=== PATIENT | male | born 1965 | race Caucasian/White ===

== ENCOUNTER 2016-11-15 21:44 | Emergency (ER) | payer BC ==
[2016-11-15 21:48] VITALS: BP 149/109; PULSE 90; RESP 14; O2SAT 97
[2016-11-15] MEDS ORDERED: AUGM875T3 PO ×3 (22:50→23:05)
[2016-11-15] MEDS ORDERED: ATOR10TA15 PO (22:50)
[2016-11-15] MEDS ORDERED: ALBUAER3 INH (22:50)
[2016-11-15] MEDS ORDERED: VENTAER INH (22:50)
[2016-11-15] MEDS ORDERED: POLY10O LEFT EYE (23:04)
--- NOTE | 2016-11-15 23:05 | PD ---
HPI Chief Complaint: Foreign Body Time Seen by Provider: 22:53 Travel History International Travel<30 days: No Contact w/Intl Traveler<30days: No Traveled to known affect area: No History of Present Illness HPI 51-year-old male complains of a fishhook on the left eyebrow and irritation to left eye. Patient was fishing and a fishhook stuck on the left eyebrow and another fishhook scratches his left Eyeball. Patient states that he is up-to- date with TD booster. Patient denies any problems seeing out of the left eye. PFSH Social History Tobacco Use: No Allergies-Medications (Allergen,Severity, Reaction): Coded Allergies: No Known Allergies (Unverified , 11/15/16) Reported Meds & Prescriptions Reported Meds & Active Scripts Active Augmentin (Amoxicillin-Clavulanate) 875-125 Mg Tab 1 Tab PO DAILY Polytrim Opth Drops (Polymyxin/Trimethoprim Sulfate) 10,000-0.1 Unit/Ml-% Soln 1 Drop LEFT EYE TID Reported Proair Hfa 8.5 GM Inh (Albuterol Sulfate) 90 Mcg/Act Aer 2 Puff INH Q4-6H PRN 108 mcg/actuation Atorvastatin (Atorvastatin Calcium) 10 Mg Tab 10 Mg PO HS Augmentin (Amoxicillin-Clavulanate) 875-125 Mg Tab 1 Tab PO BID Review of Systems General / Constitutional: No: Fever Eyes: No: Visual changes HENT: No: Headaches Cardiovascular: No: Chest Pain or Discomfort Respiratory: No: Shortness of Breath Gastrointestinal: No: Abdominal Pain Genitourinary: No: Dysuria Musculoskeletal: No: Pain Skin: No Rash Neurologic: No: Weakness Psychiatric: No: Depression Endocrine: No: Polydipsia Hematologic/Lymphatic: No: Easy Bruising Physical Exam Narrative GENERAL: Well-nourished, well-developed patient. SKIN: Focused skin assessment warm/dry. HEAD: Normocephalic. EYES: Left conjunctiva mildly erythematous. Pupils 3 mm equal reactive. Left eye stained with fluoresceins stain shows mild uptake on the left cornea and left conjunctiva. No foreign body noted. Patient has a fishhook embedded on the left eyebrow. NECK: Supple, trachea midline. No JVD or lymphadenopathy. CARDIOVASCULAR: Regular rate and rhythm without murmurs, gallops, or rubs. RESPIRATORY: Breath sounds equal bilaterally. No accessory muscle use. GASTROINTESTINAL: Abdomen soft, non-tender, nondistended. MUSCULOSKELETAL: No cyanosis, or edema. BACK: Nontender without obvious deformity. No CVA tenderness. Data Data Last Documented VS Vital Signs Date Time Temp Pulse Resp B/P Pulse Ox O2 Delivery O2 Flow Rate FiO2 11/15/16 21:48 90 14 149/109 97 MDM Medical Decision Making Medical Screen Exam Complete: Yes Emergency Medical Condition: Yes Differential Diagnosis Differential diagnosis including warm body in left eyebrow and left eyes corneal abrasion, iritis, uveitis, ruptured globe. Narrative Course 51-year-old male with a fishhook embedded in the left eyebrow and patient has left corneal abrasion. Procedures Procedure Narrative 1% lidocaine local anesthesia. The area was cleaned with saline solution. The fishhook was removed by backtracking the fishhook with the help of 14-gauge needle. Diagnosis Primary Impression: Foreign body entering through skin Qualified Code: W45.8XXA - Foreign body entering through skin, initial encounter Additional Impression: Left corneal abrasion Qualified Code: S05.02XA - Left corneal abrasion, initial encounter Patient Instructions: General Instructions Additional Instructions: Augmentin as directed. Polytrim ophthalmic solution as directed. Follow-up with personal physician. Return if increasing redness swelling. Med/Other Pt SpecificInfo: Prescription(s) given Scripts Amoxicillin-Clavulanate (Augmentin)875-125 Mg Tab1 Tab PO DAILY #7 TAB Prov:Timur Julian MD 11/15/16 Polymyxin B-Trimethoprim Opth Drops (Polytrim Opth Drops)10,000-0.1 Unit/Ml-% Soln1 Drop LEFT EYE TID #1 BOTTLE Ref 0 Prov:Timur Julian MD 11/15/16 Disposition: 01 DISCHARGE HOME Condition: Stable Timur Julian MD Nov 15, 2016 23:05
== END 2016-11-15 23:49 | disposition home or self-care (01) ==
LOC: NEPD 21:44
DX: S00.251A Superficial foreign body of right eyelid and periocular area, initial encounter (principal); S05.02XA Injury of conjunctiva and corneal abrasion without foreign body, left eye, initial encounter; W45.8XXA Other foreign body or object entering through skin, initial encounter; Y93.89 Activity, other specified; Y92.838 Other recreation area as the place of occurrence of the external cause; Y99.8 Other external cause status
CPT/HCPCS: 10120